=== PATIENT | female | born 1980 | race African-American/Black ===

== ENCOUNTER 2019-10-09 10:14 | Emergency (ER) | payer SELFPAY ==
[~2019-10-09] VITALS: Ht 170.2 cm; Wt 85.0 kg
[2019-10-09 12:22] VITALS: BP 142/100
== END 2019-10-09 12:23 | disposition home or self-care (01) ==
LOC: ER 10:27
DX: R21 Rash and other nonspecific skin eruption (principal); R20.0 Anesthesia of skin; M32.9 Systemic lupus erythematosus, unspecified; Z88.5 Allergy status to narcotic agent
CPT/HCPCS: 81025; 99282